=== PATIENT | female | born 1990 | race Hispanic/Latino ===

== ENCOUNTER 2019-12-13 14:56 | Emergency (ER) | payer OTHER, SELFPAY ==
[2019-12-13 15:02] VITALS: BP 108/66; PULSE 84; RESP 18; TEMP 37.2; O2SAT 99
--- NOTE | 2019-12-13 15:49 | ED.FEMALEGU ---
HPI - Female Genitourinary General Chief complaint: Urogenital-Female Stated complaint: UTI Time Seen by Provider: 12/13/19 15:49 Source: patient and RN notes reviewed Mode of arrival: ambulatory Limitations: no limitations History of Present Illness HPI Narrative: 29-year-old female who presents to [facility] care with complaints of 4 day duration of perineal/lower vaginal burning with urination and itching with discomfort to mainly left vaginal area. Patient denies any vaginal discharge, states no fevers, chills, no nausea or vomiting or abdominal or CVA tenderness. Patient states history of UTI and vaginal yeast infections with similar symptoms. Patient states previous cervix procedure a few months ago with appointment in 1 month with [facility]. MD elicited complaint: dysuria and genital itching Pertinent past history: IUD and other (vaginal yeast infection and UTI) Onset (ago): day(s) (4) Location of symptoms: external genitalia and perineum Severity: moderate Severity scale (1-10): 7 Quality of pain: burning Vaginal discharge: none Vaginal bleeding: none Urinary symptoms: Dysuria Exacerbating factors: urination Relieving factors: none Associated symptoms: denies other symptoms Sexual activity: Yes Patient : No Related Data Allergies Allergy/AdvReac Type Severity Reaction Status Date / Time No Known Allergies Allergy Unknown Verified 12/13/19 15:38 Review of Systems Review of Systems: Narrative: CONSTITUTIONAL: Denies fever, chills, or sweats. EYES: Denies visual changes, redness, or discharge. ENT: Denies rhinorrhea, congestion, sore throat, or otalgia. CARDIOVASCULAR: Denies chest pain, palpitations, or edema. RESPIRATORY: Denies cough or dyspnea. GASTROINTESTINAL: Denies abdominal pain, nausea, vomiting, or diarrhea. GENITOURINARY: positive dysuria no hematuria, vaginal itching and discomfort SKIN: Denies rash or itching. MUSCULOSKELETAL: Denies back pain, joint pain, or myalgia. NEUROLOGIC: Denies headache, numbness, or weakness. PSYCHIATRIC: Denies anxiety or depression. [facility] Past Medical History Medical History (Updated 12/15/19 @ 16:29 by Bri Purcell NP) Asthma Post depression Urinary tract infection Vaginal yeast infection Social History Social History (Updated 12/15/19 @ 16:26 by Bri Purcell NP) Smoking status: Never smoker Living arrangements: with family Gender identity (if verbalized by the patient): Female Exam Narrative: Exam Narrative: GENERAL: Well-appearing, well-nourished, and in no acute distress. HEAD: Normocephalic, atraumatic. EYES: PERRLA and EOMI. ENT: Nares clear, no rhinorrhea or epistaxis. Mucous membranes moist.TM's normal with good light reflex, throat pink with no swelling or lesions. NECK: Supple.no lymphadenopathy CHEST: Clear to auscultation. No respiratory distress. HEART: Regular rate and rhythm. No murmur heard. Normal peripheral pulses. ABDOMEN: Soft, nontender, nondistended, normal active bowel sounds.lower perineum.vaginal burning and discomfort itching with no drainage or odor EXTREMITIES: Normal range of motion. No edema. SKIN: Warm, dry, no rash. NEURO: No focal deficits. Alert and oriented x3. Course Vital Signs Vital signs: Vital Signs Temperature 37.2 C 12/13/19 15:02 Pulse Rate 84 12/13/19 15:02 Respiratory Rate 18 12/13/19 15:02 Blood Pressure 108/66 12/13/19 15:02 Pulse Oximetry 99 12/13/19 15:02 Temperature 37.2 C 12/13/19 15:02 Pulse Rate 84 12/13/19 15:02 Respiratory Rate 18 12/13/19 15:02 Blood Pressure 108/66 12/13/19 15:02 Pulse Oximetry 99 12/13/19 15:02 MDM - Female Genitourinary Differential Diagnosis Differential diagnosis: Likely urinary tract infection, vaginitis, cystitis and other (dysuria, vaginal yeast infection) Medical Records Attestation: I reviewed the patient's medical records. Lab Data Attestation: I reviewed the patient's lab results. Lab results narrative: s
== END 2019-12-13 16:15 | disposition home or self-care (01) ==
PROVIDERS: Emergency Provider Registered Nurse; PCP Family Medicine
DX: B37.3 Candidiasis of vulva and vagina (principal); N39.0 Urinary tract infection, site not specified
CPT/HCPCS: 81003; 87086; 99213; G0463